=== PATIENT | male | born 1935 | race Caucasian/White ===

== ENCOUNTER 2016-09-21 18:07 | Emergency (ER) | payer MEDICARE ==
[~2016-09-21] VITALS: Ht 180.3 cm; Wt 119.0 kg
[~2016-09-21 18:07] MED LIST: ASPI325T PO; CIPR500T4 PO; OXYC1SOL5 PO; RIVA10 PO; TAMS0.4C67 PO; Z.0.COMMODE-3:1; Z.0.WALKERFRONT; ZOCO40TA PO
[2016-09-21 18:12] VITALS: BP 129/75; PULSE 62; RESP 16; TEMP 97.7; O2SAT 96
--- NOTE | 2016-09-21 19:10 | RADHPO ---
EXAM DATE/TIME: 09/21/2016 18:50 [facility] COMPARISON: No previous studies available for comparison. INDICATIONS : Trauma, fall. MEDICAL HISTORY : None. SURGICAL HISTORY : None. ENCOUNTER: Initial ACUITY: 1 day PAIN SCORE: 5/10 LOCATION: Right wrist FINDINGS: There is a minimally displaced oblique fracture involving the proximal radius which may propagate int o the ulnar aspect of the radiocarpal joint without significant associated incongruity of the joint. There may be slight impaction given mild ulna positive variance. A dorsal ossification at the level o f the intercarpal joint may be a chip fracture or an osteophyte or chronic finding. CONCLUSION: Wrist fracture as described Campbell Melo MD on September 21, 2016 at 19:05 Board Certified Radiologist. This report was verified electronically.
--- NOTE | 2016-09-21 19:13 | RADHPO ---
EXAM DATE/TIME: 09/21/2016 18:54 [facility] COMPARISON: No previous studies available for comparison. INDICATIONS : Trauma, fall. MEDICAL HISTORY : None. SURGICAL HISTORY : None. ENCOUNTER: Initial ACUITY: 1 day PAIN SCORE: 5/10 LOCATION: Right elbow FINDINGS: Multiple view examination of the right elbow demonstrates no soft tissue swelling, joint effusion, or fracture. The osseous structures are in normal alignment. Bony mineralization is normal. CONCLUSION: Unremarkable examination of the right elbow. Campbell Melo MD on September 21, 2016 at 19:10 Board Certified Radiologist. This report was verified electronically.
--- NOTE | 2016-09-21 19:13 | RADHPO ---
EXAM DATE/TIME: 09/21/2016 19:00 [facility] COMPARISON: No previous studies available for comparison. INDICATIONS : Trauma, fall. MEDICAL HISTORY : None. SURGICAL HISTORY : None. ENCOUNTER: Initial ACUITY: 1 day PAIN SCORE: 5/10 LOCATION: Right shoulder FINDINGS: Multiple view examination of the right shoulder demonstrates no evidence of fracture or dislocation. The glenohumeral and acromioclavicular joints are maintained. There is normal range of motion betwe en internal and external rotation. Bony mineralization is normal. CONCLUSION: Unremarkable examination of the right shoulder. Campbell Melo MD on September 21, 2016 at 19:10 Board Certified Radiologist. This report was verified electronically.
--- NOTE | 2016-09-21 19:49 | PD ---
HPI Chief Complaint: Injury Time Seen by Provider: 18:40 Travel History International Travel<30 days: No Contact w/Intl Traveler<30days: No Traveled to known affect area: No History of Present Illness HPI 81 -year-old male presents to the emergency room for evaluation of right upper extremity pain, low back pain after trip and fall earlier today. Patient states he was climbing through an open window to try to get into his house after he locked himself out and he slipped and fell backwards. He was about 4 feet up. He states he landed on his right side. Most of the pain is in his bilateral, distal right wrist but he also reports pain in the elbow and shoulder. Pain is worsened with any range of motion of the upper extremity. He has not taken anything for his symptoms. Patient denies loss of bowel or bladder control, saddle anesthesia, difficulty ambulate, or upper or lower extremity paresthesias. He adamantly denies hitting his head or loss of consciousness. Denies neck pain, headache, dizziness. PFSH Past Medical History Cancer: No Cardiovascular Problems: No Diabetes: No Endocrine: No Genitourinary: No Hepatitis: No Hiatal Hernia: No Immune Disorder: No Musculoskeletal: Yes (ARTHRITIS) Neurologic: No Psychiatric: No Reproductive: No Respiratory: Yes (SLEEP APNEA HAS CPAP) Thyroid Disease: No Past Surgical History Abdominal Surgery: Yes (HERNIA REPAIR 09/2014) AICD: No Cardiac Surgery: No Ear Surgery: No Endocrine Surgery: No Eye Surgery: No Genitourinary Surgery: No Gynecologic Surgery: No Joint Replacement: Yes (RIGHT KNEE) Oral Surgery: No Pacemaker: No Thoracic Surgery: No Other Surgery: Yes Social History Alcohol Use: No Tobacco Use: No Substance Use: No Allergies-Medications (Allergen,Severity, Reaction): Coded Allergies: No Known Allergies (Verified , 09/21/16) Reported Meds & Prescriptions Reported Meds & Active Scripts Active No Active Prescriptions or Reported Medications Review of Systems Except as stated in HPI: all other systems reviewed are Neg Physical Exam Narrative GENERAL: Well-nourished, well-developed male in no acute distress. Afebrile. Ambulatory. SKIN: Focused skin assessment warm/dry. No erythema or ecchymosis noted. HEAD: Normocephalic. EYES: No scleral icterus. No injection or drainage. NECK: Supple, trachea midline. No JVD or lymphadenopathy. No midline tenderness. Full range of motion. CARDIOVASCULAR: Regular rate and rhythm without murmurs, gallops, or rubs. RESPIRATORY: Breath sounds equal bilaterally. No accessory muscle use. EXTREMITY: Right wrist tender to palpation. Slightly limited range of motion in shoulder, wrist, and elbow secondary to pain. Mild edema limited to the wrist. No snuffbox tenderness. 2+ radial pulse. Radial, ulnar, and median nerves intact. No significant tenderness to palpation of the elbow or shoulder. BACK: No CVA tenderness. No rash. No point tenderness on palpation of the spine. Data Data Last Documented VS Vital Signs Date Time Temp Pulse Resp B/P Pulse Ox O2 Delivery O2 Flow Rate FiO2 09/21/16 18:12 97.7 62 16 129/75 96 Orders Shoulder, Complete (>2vws) (09/21/16 ) Elbow, Complete (4 Vws) (09/21/16 ) Wrist, Complete ([id number]) (09/21/16 ) Ct Lumb Spine W/O Contrast (09/21/16 ) Splint Or Brace Apply/Monitor (09/21/16 19:56) MDM Medical Decision Making Medical Screen Exam Complete: Yes Emergency Medical Condition: Yes Medical Record Reviewed: Yes Differential Diagnosis Fracture versus dislocation versus contusion versus brain versus strain Narrative Course 81-year-old male presents to the emergency room for evaluation of right upper extremity pain and low back pain after falling earlier today. Patient adamantly denies hitting his head or loss of consciousness. Denies neck pain. He localizes most of his pain to the wrist but also reports pain in the elbow and shoulder. Physical exam reveals mild edema of the wrist without obvious deformity. No snuffbox tenderness. 2+ radial pulse. Radial, ulnar, and median nerves intact. Slightly limited range of motion secondary to pain. X- ray of the shoulder and elbow are negative. X-ray of the wrist shows minimal a displaced oblique fracture through the proximal radius. CT of the lower back is negative for acute abnormality, shows degenerative disc disease. Patient declined pain medication. He was placed in a sugar tong splint. Patient follows with Dr. Mora. He is told to follow up with Dr. Woody within one week and return to the emergency room sooner for worsening symptoms. He understands and agrees to plan. Diagnosis Primary Impression: Right wrist fracture Qualified Code: S62.101A - Right wrist fracture, closed, initial encounter Additional Impression: Right shoulder pain Qualified Code: M25.511 - Acute pain of right shoulder Referrals: Primary Care Physician Patient Instructions: General Instructions, Wrist Fracture in Adults (ED) Additional Instructions: Rest and drink plenty of fluids. Keep splint on until follow-up. Elevate above heart as much as possible. Take Tylenol as directed, as needed for pain. Apply ice to the affected area for 20 minutes at a time, as needed for pain and swelling. Follow-up with a primary care physician. Return to the emergency room for worsening symptoms. Scripts No Active Prescriptions or Reported Meds Disposition: 01 DISCHARGE HOME Condition: Stable Catherine Martinez September 21, 2016 19:49
--- NOTE | 2016-09-21 19:51 | RADHPO ---
EXAM DATE/TIME: 09/21/2016 19:01 [facility] COMPARISON: No previous studies available for comparison. INDICATIONS : Trauma, fall. RADIATION DOSE: 40.03 CTDIvol (mGy) MEDICAL HISTORY : None SURGICAL HISTORY : None. ENCOUNTER: Initial ACUITY: 1 day PAIN SCALE: 5/10 LOCATION: [facility] TECHNIQUE: Volumetric scanning of the lumbar spine was performed. Multiplanar reconstructions in the sagittal, coronal and oblique axial planes were performed. Using automated exposure control and adjustment of the mA and/or kV according to patient size, radiation dose was kept as low as reasonably achievable t o obtain optimal diagnostic quality images. FINDINGS: Lumbar spinal alignment is satisfactory. There is nothing to suggest acute fracture. There are no acu te Schmorl node type injury is seen involving superior and inferior endplates of L2 and L3. There are small endplate osteophytes, primarily ventral most significantly at L2-3 and L3-4 levels. There is n o significant bony canal or foraminal stenosis. There are mild disc bulges at L2-3, L3-4 and L4-5. Mo derate posterior facet arthropathy is present, most conspicuous at L4-5 and L5-S1. CONCLUSION: Degenerative changes. No evidence of acute bony injury Campbell Melo MD on September 21, 2016 at 19:41 Board Certified Radiologist. This report was verified electronically.
== END 2016-09-21 20:50 | disposition home or self-care (01) ==
LOC: PHEFT 18:07
DX: S52.101A Unspecified fracture of upper end of right radius, initial encounter for closed fracture (principal); M25.511 Pain in right shoulder; M51.36 Other intervertebral disc degeneration, lumbar region; M25.521 Pain in right elbow; M19.90 Unspecified osteoarthritis, unspecified site; G47.30 Sleep apnea, unspecified; W17.89XA Other fall from one level to another, initial encounter; Y92.009 Unspecified place in unspecified non-institutional (private) residence as the place of occurrence of the external cause
CPT/HCPCS: 29125; 72131; 73030; 73080; 73110